=== PATIENT | male | born 1940 | race Caucasian/White ===

== ENCOUNTER 2018-01-27 09:13 | Day surgery (SDC) | payer OTHER ==
[2018-01-27] MEDS ORDERED: LIDOCAINE 2% (SDV) 5 ML INJ (10:28)
[2018-01-27] MEDS ORDERED: PROPOFOL 60 ML (10:28)
== END 2018-01-27 11:46 | disposition home or self-care (01) ==
LOC: GIL 09:13
DX: K92.1 Melena (principal); D12.3 Benign neoplasm of transverse colon; I10 Essential (primary) hypertension; E11.9 Type 2 diabetes mellitus without complications
CPT/HCPCS: 45380; 88305

== ENCOUNTER 2018-03-06 21:08 | Observation (INO) | payer OTHER ==
[2018-03-06] MEDS ORDERED: morphine LIQ (10 MG/5 ML) CUP PO (23:00)
[2018-03-06] MEDS ORDERED: DOCUSATE SODIUM 100 MG CAP PO (23:00)
[2018-03-06] MEDS ORDERED: NITROGLYCERIN (SL) 0.4 MG TAB SL (23:00)
[2018-03-06] MEDS ORDERED: ACETAMINOPHEN 325 MG TAB PO (23:00)
[2018-03-06] MEDS ORDERED: BISACODYL (EC) 5 MG TAB PO (23:00)
[2018-03-06] MEDS ORDERED: ONDANSETRON 4 MG INJ IV (23:00)
[2018-03-06] MEDS ORDERED: NACL 0.9% 3 ML SYG IV (23:00)
[2018-03-06] MEDS ORDERED: GLUCOSE GEL 15 GRAM TUBE BUCCAL (23:30)
[2018-03-06] MEDS ORDERED: GLUCAGON 1 MG INJ IM (23:30)
[2018-03-06] MEDS ORDERED: DEXTROSE 50% 50 ML SYRINGE IV ×2 (23:30)
[2018-03-06] MEDS ORDERED: hydrALAzine 20 MG INJ IV (23:30)
[2018-03-06] MEDS ORDERED: GLUCOSE GEL 15 GRAM TUBE PO ×2 (23:30)
[2018-03-06 23:34] LABS: CREATINE KINASE 32 IU/L (23-200)
[2018-03-06] MEDS: LOSARTAN 25 MG TAB PO (23:40)
[2018-03-06 23:47] LABS: CK INDEX 1.6
[2018-03-06 23:49] LABS: TROPONIN-I < 0.012 ng/ml (0.000-0.120)
[2018-03-07] MEDS: ACCU-CHEK XX (02:00)
[2018-03-07 05:35] LABS: ADD MAN DIFF? NO
[2018-03-07 05:39] LABS: BASOPHILS % 0.3 % (0.0-2.0); EOSINOPHILS # 0.2 10^3/ul (0.0-0.5); EOSINOPHILS % 2.5 % (0.0-7.0); HEMATOCRIT 39.5 % (42.0-52.0); HEMOGLOBIN 13.6 g/dl (14.0-18.0); LYMPHOCYTES # 1.9 10^3/ul (0.8-2.9); LYMPHOCYTES % 29.3 % (15.0-51.0); MEAN CORPUSCULAR HGB CONC 34.4 g/dl (32.0-37.0); MEAN PLATELET VOLUME 10.1 fl (7.4-10.4); MONOCYTE # 0.7 10^3/ul (0.3-0.9); MONOCYTES % 10.6 % (0.0-11.0); NEUTROPHIL # 3.6 10^3/ul (1.6-7.5); PLATELET COUNT 116 10^3/UL (140-415); POSITIVE DIFF @See below; RED BLOOD COUNT 4.39 10^6/ul (4.70-6.10); RED CELL DISTRIBUTION WIDTH 12.7 % (11.5-14.5)
[2018-03-07 05:39] LABS: WHITE BLOOD COUNT 6.3 10^3/ul (4.8-10.8)
[2018-03-07 05:52] LABS: CREATINE KINASE 29 IU/L (23-200)
[2018-03-07 06:05] LABS: CK INDEX 1.5
[2018-03-07 06:09] LABS: HEMOGLOBIN A1C 5.2 % (0-5.9)
[2018-03-07 06:09] LABS: CK-MB 0.43 ng/ml (0.0-2.4); TROPONIN-I < 0.012 ng/ml (0.000-0.120)
[2018-03-07] MEDS: INSULIN ASPART [NOVOLOG] 3 ML PEN SC ×2 (07:35→11:16)
[2018-03-07 07:46] LABS: ALANINE AMINOTRANSFERASE 27 IU/L (13-69); ALBUMIN 3.7 g/dl (3.3-4.9); ALBUMIN/GLOBULIN RATIO 1.23; ALKALINE PHOSPHATASE 49 IU/L (42-121); ANION GAP 14 (8-16); ASPARTATE AMINO TRANSFERASE 15 IU/L (15-46); BILIRUBIN,INDIRECT 0.9 mg/dl (0-1.1); BILIRUBIN,TOTAL 0.9 mg/dl (0.2-1.3); BLOOD UREA NITROGEN 19 mg/dl (7-20); CALCIUM 8.9 mg/dl (8.4-10.2); CARBON DIOXIDE 29 mmol/L (21-31); CHLORIDE 107 mmol/L (97-110); CHOL/HDL RATIO 3.6 RATIO; CHOLESTEROL 117 mg/dl (100-200); CREATININE 1.04 mg/dl (0.61-1.24); GLUCOSE 123 mg/dl (70-220); HDL CHOLESTEROL 32 mg/dl (31-75); LDL CHOLESTEROL,CALCULATED 71 mg/dl; MAGNESIUM 2.2 mg/dl (1.7-2.5); POTASSIUM 4.3 mmol/L (3.5-5.1); SODIUM 146 mmol/L (135-144); TOTAL PROTEIN 6.7 g/dl (6.1-8.1); TRIGLYCERIDES 71 mg/dl (0-149)
[2018-03-07] MEDS: ASPIRIN (EC) 81 MG TAB PO (08:21)
[2018-03-07] MEDS: AMLODIPINE 5 MG TAB PO ×2 (08:21→11:13)
[2018-03-07] MEDS: ATENOLOL 100 MG TAB PO (08:22)
[2018-03-07] MEDS: LOSARTAN 50 MG TAB PO (08:22)
[2018-03-07] MEDS: REGADENOSON 0.4 MG/5 ML SYG (14:29)
[2018-03-07] MEDS ORDERED: LATANOPROST 0.005% 2.5 ML OPH BOTH EYES (21:00)
== END 2018-03-07 17:01 | disposition home or self-care (01) ==
LOC: MS3 21:08
PROVIDERS: Internal Medicine
DX: R07.89 Other chest pain (principal); R79.89 Other specified abnormal findings of blood chemistry; I10 Essential (primary) hypertension; E11.9 Type 2 diabetes mellitus without complications; N40.0 Benign prostatic hyperplasia without lower urinary tract symptoms; E78.5 Hyperlipidemia, unspecified; Z88.0 Allergy status to penicillin
CPT/HCPCS: 78452; 80053; 80061; 82550; 82553; 82962; 83036; 83735; 84443; 84484; 85025; 93017; 93306; 99217